=== PATIENT | female | born 1965 | race Caucasian/White ===

== ENCOUNTER → 2020-04-17 | Outpatient (CLI) | payer MEDICARE ==
[~2020-04-17] MED LIST: ACET325T14 PO; CALC-55 PO; CHOL10002 PO; IBUP-1223 PO; NABU500T PO; NAPR220C2 PO
== END | disposition home or self-care (01) ==
LOC: CFH 13:57
PROVIDERS: ATTEND Internal Medicine
DX: N63.20 Unspecified lump in the left breast, unspecified quadrant (principal); R92.8 Other abnormal and inconclusive findings on diagnostic imaging of breast; N64.52 Nipple discharge; Q83.9 Congenital malformation of breast, unspecified
CPT/HCPCS: 76642; 77066; G0279